=== PATIENT | male | born 1980 | race Caucasian/White ===

== ENCOUNTER 2020-12-21 21:31 | Observation (INO) | payer OTHER ==
[2020-12-21] MEDS ORDERED: fentaNYL 50 MCG/ML SDV IVPUSH ONE ×2 (21:53→23:27)
[2020-12-21] MEDS ORDERED: Ondansetron 4 MG/2 ML SDV IVPUSH ONE (21:53)
[2020-12-21] MEDS ORDERED: Sodium Chloride 0.9% 1,000 ML IV ONE (21:53)
--- NOTE | 2020-12-21 22:25 | EDM.PDOC ---
ED HPI GENERAL MEDICAL PROBLEM - General Chief Complaint: Abdominal Pain Stated Complaint: ABDOMINAL PAIN Time Seen by Provider: 12/21/20 21:50 - History of Present Illness INITIAL COMMENTS - FREE TEXT/NARRATIVE: HISTORY AND PHYSICAL: History of present illness: This is a healthy 40-year-old gentleman with no significant past medical history who presents ER today complaining of lower abdominal pain. Patient is a transfer from [facility] for evaluation of pain to his right lower quadrant and concerns for appendicitis. Patient reports that his last p.o. intake with early this morning. Patient has complained of anorexia with nausea and emesis. Patient denies any fevers, shakes, chills. Patient does complain of pain with ambulation and coughing to his abdomen. Patient denies any dysuria, frequency, urgency, chest pain, shortness of breath. Review of systems: As per history of present illness and below otherwise all systems reviewed and negative. Past medical history: As per history of present illness and as reviewed below otherwise noncontributory. Surgical history: As per history of present illness and as reviewed below otherwise noncontributory. Social history: No reported history of drug or alcohol abuse. Family history: As per history of present illness and as reviewed below otherwise noncontributory. Physical exam: Constitutional: Patient is oriented to person, place, and time. Appears well- developed and well-nourished. No distress. HEENT: Moist mucous membranes Head: Normocephalic and atraumatic Eyes: Right eye exhibits no discharge. Left eye exhibits no discharge. No scleral icterus Neck: Normal range of motion. No tracheal deviation present. Cardiovascular: Normal rate and regular rhythm. Pulmonary: Effort normal, no respiratory distress. Abd: Soft, nondistended, no rebound/guarding, no psoas or obturator signs, no tenderness at Mcberney's point, no Hartman's sign. Pt does not present with an exam that would be consistent with an acute surgical abdomen at this time, tenderness palpation diffusely greatest in the right lower quadrant. Musculoskeletal: Normal range of motion Neurologic: Alert and oriented to person, place and time. Skin: [place], warm and dry. Psychiatric: Normal mood and affect. Behavior is normal. Judgment and thought content normal. Nursing note and vital signs have been reviewed This patient was seen and evaluated during the 2019 SARS-CoV-2 novel coronavirus pandemic period. Community viral transmission is ongoing at time of this encounter and the emergency department is operating under pandemic response proc edures. Diagnostics: CT scan consistent with acute appendicitis Chest Xray: Normal cardiac silhouette No infiltrates or effusions identified. No PTX No evidence of acute bony fracture. As interpreted by ER MD: [employer]: Fentanyl, Zofran, NSS Assessment and plan: This is a 40-year-old gentleman who presents ER today as a transfer for evaluation of possible appendicitis. Patient does have tenderness palpation diffusely throughout his abdomen but is greatest in the right lower quadrant region. Patient's labs from [facility] are significant for slightly elevated WBC count of 13.5. Patient's BUN and creatinine are both normal. We will obtain a CT scan of the abdomen pelvis with contrast to evaluate for kidney stone as well as appendicitis. CT scan of the abdomen pelvis reveals findings consistent with appendicitis without abscess or free air/perforation. Case has been discussed with Dr. Lanza who agrees with plan for admission. I discussed the results with the patient. Coronavirus test has been ordered. Definitive disposition and diagnosis as appropriate pending reevaluation and review of above. general abdomen Pain Score (Numeric/FACES): 8 - Related Data Allergies Allergy/AdvReac Type Severity Reaction Status Date / Time hydrocodone Allergy Nausea and Verified 12/21/20 21:36 Vomiting Home Meds: Home Meds Metoprolol Succinate 50 mg PO DAILY 12/21/20 [History] lisinopriL [Lisinopril] 25 mg PO DAILY 12/21/20 [History] Past Medical History Cardiovascular History: Reports: Afib, Hypertension Other Cardiovascular History: hx of afib Social & Family History - Family History Family Medical History: No Pertinent Family History - Caffeine Use Caffeine Use: Reports: None - Recreational Drug Use Recreational Drug Use: No ED ROS GENERAL - Review of Systems Review Of Systems: See Below ED EXAM, GENERAL - Physical Exam Exam: See Below #1 Interpretation EKG Interpretation Comments: EKG: As interpreted by ER physician: Gretta: Nonspecific ST-T wave abnormalities Normal axis No evidence of ST elevation WA Normal sinus rhythm heart rate of 58 Course - Vital Signs Last Recorded V/S: Last Vital Signs Temp 98.0 F 12/21/20 21:37 Pulse 72 12/21/20 22:51 Resp 18 12/21/20 22:51 BP 151/93 H 12/21/20 22:51 Pulse Ox 98 12/21/20 22:51 - Orders/Labs/Meds Orders: Active Orders 24 hr Category Date Time Status Patient Status [ADT] Routine ADT 12/21/20 23:01 Active EKG Documentation Completion [RC] AM Care 12/21/20 23:02 Active Chest 1V Frontal [CR] Stat Exams 12/21/20 23:03 Taken CORONAVIRUS COVID-19 SATNAM [MOLEC] Stat Lab 12/21/20 22:47 Received fentaNYL Med 12/21/20 23:27 Once 50 mcg IVPUSH ONETIME ONE Medication Orders Fentanyl (Fentanyl) 50 mcg IVPUSH ONETIME ONE Stop: 12/21/20 23:28 Meds: Medications Generic Name Dose Route Start Last Admin Trade Name Freq PRN Reason Stop Dose Admin Fentanyl 50 mcg 12/21/20 23:27 Fentanyl IVPUSH 12/21/20 23:28 ONETIME ONE Discontinued Medications Generic Name Dose Route Start Last Admin Trade Name Freq PRN Reason Stop Dose Admin Fentanyl 50 mcg 12/21/20 21:53 12/21/20 22:13 Fentanyl IVPUSH 12/21/20 21:54 50 mcg ONETIME ONE Administration Sodium Chloride 1,000 mls @ 999 mls/hr 12/21/20 21:53 12/21/20 22:12 Normal Saline IV 12/21/20 22:53 999 mls/hr .Bolus ONE Administration Ondansetron HCl 4 mg 12/21/20 21:53 12/21/20 22:13 Zofran IVPUSH 12/21/20 21:54 4 mg ONETIME ONE Administration Departure - Departure Time of Disposition: 23:02 Disposition: Refer to Observation Condition: Good Clinical Impression: Appendicitis Qualifiers: Appendicitis type: acute appendicitis Acute appendicitis type: unspecified acute appendicitis type Qualified Code(s): K35.80 - Unspecified acute appendicitis - Discharge Information Referrals: Linden Foster MD [Primary Care Provider] - Forms: ED Department Discharge Sepsis Event Note (ED) - Evaluation Sepsis Screening Result: No Definite Risk - Focused Exam Vital Signs: Vital Signs Temp Pulse Resp BP Pulse Ox 12/21/20 22:51 72 18 151/93 H 98 12/21/20 21:37 98.0 F 59 L 18 156/88 H 96 - My Orders Last 24 Hours: My Active Orders 12/21/20 22:47 CORONAVIRUS COVID-19 SATNAM [MOLEC] Stat 12/21/20 23:01 Patient Status [ADT] Routine 12/21/20 23:02 EKG Documentation Completion [RC] AM 12/21/20 23:03 Chest 1V Frontal [CR] Stat 12/21/20 23:27 fentaNYL 50 mcg IVPUSH ONETIME ONE - Assessment/Plan Last 24 Hours: My Active Orders 12/21/20 22:47 CORONAVIRUS COVID-19 SATNAM [MOLEC] Stat 12/21/20 23:01 Patient Status [ADT] Routine 12/21/20 23:02 EKG Documentation Completion [RC] AM 12/21/20 23:03 Chest 1V Frontal [CR] Stat 12/21/20 23:27 fentaNYL 50 mcg IVPUSH ONETIME ONE
--- NOTE | 2020-12-21 22:46 | CT ---
INDICATION: Lower abdominal pain TECHNIQUE: CT abdomen and pelvis without contrast. COMPARISON: None FINDINGS: Lower chest: 2 mm subpleural pulmonary nodule left lower lobe image 18 series 202. In Liver: Unremarkable. Spleen: Unremarkable. Pancreas: Unremarkable. Gallbladder and bile ducts: Unremarkable. Adrenal glands: Unremarkable. Kidneys: Unremarkable. No kidney or ureteral stones and no hydronephrosis. GI tract: The appendix measures 1.2 cm in diameter. There at mid fecaliths within the appendix. Mild periappendiceal fat stranding. No extraluminal air or large fluid collection. Minimal colonic diverticulosis. Vascular structures: Unremarkable. Lymph nodes: Unremarkable. Miscellaneous: Small fat containing umbilical hernia. Small fat containing bilateral inguinal hernias. No free air or significant free fluid. Pelvic Organs: Unremarkable. Bones: Unremarkable for age. IMPRESSION: Acute appendicitis. No extraluminal air. No evidence for significant fluid collection. Left lower lobe pulmonary nodule. Recommend follow-up per Fleischner society guidelines, as listed below. Minimal colonic diverticulosis. Findings discussed with Dr. Glynn at 10:45 p.m. on December 21, 2020. FLEISCHNER SOCIETY GUIDELINES - SOLID NODULES: SINGLE LOW RISK - nodule less than 6 mm: No routine follow-up. - nodule 6-8 mm: CT at 6-12 months, then consider CT at 18-24 months. - nodule greater than 8 mm: Consider CT at 3 months, PET/CT or tissue sampling. SINGLE HIGH RISK - nodule less than 6 mm: Optional CT at 12 months. - nodule 6-8 mm: CT at 6-12 months, then CT at 18-24 months. - nodule greater than 8 mm: Consider CT at 3 months, PET/CT or tissue sampling. Please note that all CT scans at this facility use dose modulation, iterative reconstruction, and/or weight-based dosing when appropriate to reduce radiation dose to as low as reasonably achievable. Dictated by Selena Clay MD @ Dec 21 2020 10:36PM Signed by Dr. Selena Clay @ Dec 21 2020 10:45PM
--- NOTE | 2020-12-21 23:34 | CR ---
Acute appendicitis indication: Technique: Chest 1 view Comparison: None Findings/Impression: Cardiovascular and mediastinum: Heart size and vasculature are normal in caliber and appearance. Mediastinum is within normal limits. Lungs and pleural space: Minimal linear atelectasis or scarring at the left lung base. No sign of pleural effusion. No pneumothorax. Bones and soft tissues: No significant findings. Dictated by Selena Clay MD @ Dec 21 2020 11:31PM Signed by Dr. Selena Clay @ Dec 21 2020 11:32PM
[2020-12-22] MEDS ORDERED: Acetaminophen 325 MG Tab PO PRN (00:06)
[2020-12-22] MEDS ORDERED: Ondansetron 4 MG/2 ML SDV IVPUSH PRN (00:13)
[2020-12-22] MEDS ORDERED: Lactated Ringers 1,000 ML IV SCH (00:15)
[2020-12-22] MEDS: HYDROmorphone 1 MG/ML Syringe IVPUSH PRN ×3 (01:01→08:12)
[2020-12-22] MEDS: Piperacillin/Tazobactam 3.375 GM in Sodium Chloride 0.9% 50 ML IV SCH ×2 (01:07→06:54)
--- NOTE | 2020-12-22 07:58 | PCM.PREANE ---
Preanesthetic Assessment - Procedure Proposed Procedure: laparoscopic appendectomy - Anesthesia/Transfusion/Family Hx Anesthesia History: Prior Anesthesia Without Reaction Family History of Anesthesia Reaction: No Transfusion History: No Prior Transfusion(s) Intubation History: Unknown - Review of Systems General: No Symptoms Pulmonary: No Symptoms Cardiovascular: Orthopnea Gastrointestinal: Abdominal Pain, Nausea, Vomiting Neurological: No Symptoms Other: Reports: None - Physical Assessment NPO Status Date: 12/21/20 NPO Status Time: 17:00 Vital Signs: Last Vital Signs Temp 36.2 C 12/22/20 04:19 Pulse 69 12/22/20 04:19 Resp 18 12/22/20 04:19 BP 147/85 H 12/22/20 04:19 Pulse Ox 94 L 12/22/20 04:19 Height: 6 ft 0.05 in Weight: 106.9 kg ASA Class: 2 Mental Status: Alert & Oriented x3 Airway Class: Mallampati = 1 Dentition: Reports: Normal Dentition Thyro-Mental Finger Breadths: 3 Mouth Opening Finger Breadths: 3 ROM/Head Extension: Full Lungs: Clear to Auscultation, Normal Respiratory Effort Cardiovascular: Regular Rate, Regular Rhythm - Lab Values: Laboratory Last Values SARS-CoV-2 RNA (SATNAM) NEGATIVE (NEGATIVE) 12/21/20 22:47 - Allergies Allergies/Adverse Reactions: Allergies Allergy/AdvReac Type Severity Reaction Status Date / Time hydrocodone Allergy Nausea and Verified 12/22/20 01:18 Vomiting - Blood Blood Available: No - Anesthesia Plan Pre-Op Medication Ordered: None - Acknowledgements Anesthesia Type Planned: General Anesthesia Pt an Appropriate Candidate for the Planned Anesthesia: Yes Alternatives and Risks of Anesthesia Discussed w Pt/Guardian: Yes Pt/Guardian Understands and Agrees with Anesthesia Plan: Yes PreAnesthesia Questionnaire Cardiovascular History: Reports: Afib, Hypertension Other Cardiovascular History: hx of afib - SUBSTANCE USE Tobacco Use Status *Q: Never Tobacco User Tobacco Use Within Last Twelve Months: Smokeless Tobacco Recreational Drug Use History: No - HOME MEDS Home Medications: Home Meds Metoprolol Succinate 50 mg PO DAILY 12/21/20 [History] lisinopriL [Lisinopril] 25 mg PO DAILY 12/21/20 [History] - CURRENT (IN HOUSE) MEDS Current Meds: Current Medications Acetaminophen (Tylenol) 500 mg PO Q6H PRN PRN Reason: Fever Hydromorphone HCl (Dilaudid) 0.5 mg IVPUSH Q1H PRN PRN Reason: Pain Last Admin: 12/22/20 04:15 Dose: 0.5 mg Documented by: Lactated Ringer's (Ringers, Lactated) 1,000 mls @ 125 mls/hr IV ASDIRECTED [facility] Last Admin: 12/22/20 01:58 Dose: 125 mls/hr Documented by: Piperacillin Sod/Tazobactam (Sod 3.375 gm/ Sodium Chloride) 50 mls @ 100 mls/hr IV Q6H [facility] Last Admin: 12/22/20 06:54 Dose: 100 mls/hr Documented by: Ondansetron HCl (Zofran) 4 mg IVPUSH Q6H PRN PRN Reason: Nausea/Vomiting Discontinued Medications Fentanyl (Fentanyl) 50 mcg IVPUSH ONETIME ONE Stop: 12/21/20 21:54 Last Admin: 12/21/20 22:13 Dose: 50 mcg Documented by: Fentanyl (Fentanyl) 50 mcg IVPUSH ONETIME ONE Stop: 12/21/20 23:28 Last Admin: 12/21/20 23:39 Dose: 50 mcg Documented by: Sodium Chloride (Normal Saline) 1,000 mls @ 999 mls/hr IV .Bolus ONE Stop: 12/21/20 22:53 Last Admin: 12/21/20 22:12 Dose: 999 mls/hr Documented by: Ondansetron HCl (Zofran) 4 mg IVPUSH ONETIME ONE Stop: 12/21/20 21:54 Last Admin: 12/21/20 22:13 Dose: 4 mg Documented by:
[2020-12-22] MEDS ORDERED: fentaNYL 250 MCG/5 ML SDV ONE (08:12)
[2020-12-22] MEDS ORDERED: Midazolam 1 MG/ML 2 ML SDV ONE (08:12)
[2020-12-22] MEDS ORDERED: Propofol 200 MG/20 ML SDV ONE ×3 (08:12→11:30)
[2020-12-22] MEDS ORDERED: Rocuronium Bromide 50 MG/5 ML Syringe ONE (08:12)
[2020-12-22] MEDS ORDERED: Ondansetron 4 MG/2 ML SDV ONE (08:12)
[2020-12-22] MEDS ORDERED: Dexamethasone 4 MG/ML 5 ML MDV ONE (08:12)
[2020-12-22] MEDS ORDERED: Lidocaine 2% 5 ML SDV ONE (08:12)
--- NOTE | 2020-12-22 08:12 | PCM.HP.2 ---
H&P History of Present Illness - General Date of Service: 12/22/20 Admit Problem/Dx: Admission Diagnosis/Problem Admission Diagnosis/Problem Acute appendicitis Source of Information: Patient History Limitations: Reports: No Limitations - History of Present Illness Initial Comments - Free Text/Narative: Patient is a 40 year old male who presents with acute appendicitis. He developed pain yesterday afternoon. The pain progressed throughout the day and centered on the right lower quadrant. He presented to an OSH. Work up revealed a leukocytosis. He was transferred here for a CT abdomen pelvis. CT abdomen pelvis in the ER showed acute appendicitis. He denies any nausea other than when he has received pain medications. general abdomen Pain Score (Numeric/FACES): 10 - Related Data Allergies/Adverse Reactions: Allergies Allergy/AdvReac Type Severity Reaction Status Date / Time hydrocodone Allergy Nausea and Verified 12/22/20 01:18 Vomiting Home Medications: Home Meds Metoprolol Succinate 50 mg PO DAILY 12/21/20 [History] lisinopriL [Lisinopril] 25 mg PO DAILY 12/21/20 [History] Past Medical History Cardiovascular History: Reports: Afib, Hypertension Other Cardiovascular History: hx of afib Social & Family History - Family History Family Medical History: No Pertinent Family History - Tobacco Use Tobacco Use Status *Q: Never Tobacco User - Caffeine Use Caffeine Use: Reports: None - Recreational Drug Use Recreational Drug Use: No H&P Review of Systems - Review of Systems: Review Of Systems: Comprehensive ROS is negative, except as noted in HPI. Exam - Exam Exam: See Below - Vital Signs Vital Signs: Last Vital Signs Temp 36.4 C 12/22/20 08:00 Pulse 75 12/22/20 08:00 Resp 14 12/22/20 08:00 BP 136/77 12/22/20 08:00 Pulse Ox 94 L 12/22/20 08:00 Weight: 106.9 kg - Exam Quality Assessment: Supplemental Oxygen General: Alert, Oriented, Mild Distress HEENT: Conjunctiva Clear, Mucosa Moist & Sharpes, Posterior Pharynx Clear Neck: Supple Lungs: Clear to Auscultation, Normal Respiratory Effort Cardiovascular: Regular Rate, Regular Rhythm GI/Abdominal Exam: Soft, No Distention, No Mass, Tender (RLQ). No: Guarding, Rigid, Rebound Extremities: Normal Inspection - Patient Data Lab Results Last 24 hrs: Laboratory Results - last 24 hr 12/21/20 Range/Units 22:47 SARS-CoV-2 RNA (SATNAM) NEGATIVE (NEGATIVE) Sepsis Event Note - Evaluation Sepsis Screening Result: No Definite Risk - Focused Exam Vital Signs: Vital Signs Temp Pulse Resp BP Pulse Ox 12/22/20 08:00 36.4 C 75 14 136/77 94 L 12/22/20 04:19 36.2 C 69 18 147/85 H 94 L 12/22/20 01:15 36.6 C 65 19 151/92 H 95 12/22/20 00:11 59 L 19 158/95 H 94 L 12/21/20 22:51 72 18 151/93 H 98 12/21/20 21:37 36.7 C 59 L 18 156/88 H 96 - Problem List (1) Appendicitis SNOMED Code(s): 66856813 ICD Code: K37 - UNSPECIFIED APPENDICITIS Status: Acute Current Visit: Yes Qualifiers: Appendicitis type: acute appendicitis Acute appendicitis type: unspecified acute appendicitis type Qualified Code(s): K35.80 - Unspecified acute appendicitis Problem List Initiated/Reviewed/Updated: Yes Orders Last 24hrs: Active Orders 24 hr Category Date Time Status Admission Status [Patient Status] [ADT] Routine ADT 12/22/20 00:04 Active NPO Now [Nothing per Oral Now Diet] [DIET] Diet 12/22/20 Breakfast Active Acetaminophen [TylenoL] Med 12/22/20 00:06 Active 500 mg PO Q6H PRN HYDROmorphone [Dilaudid] Med 12/22/20 00:10 Active 0.5 mg IVPUSH Q1H PRN Lactated Ringers [Ringers, Lactated] 1,000 ml Med 12/22/20 00:15 Active IV ASDIRECTED Ondansetron [Zofran] Med 12/22/20 00:13 Active 4 mg IVPUSH Q6H PRN Piperacillin/Tazobactam [Piperacil-Tazobact] 3.375 gm Med 12/22/20 01:00 Active Sodium Chloride 0.9% [Normal Saline] 50 ml IV Q6H Code Status [Resuscitation Status] Routine Resus Stat 12/22/20 00:05 Ordered Medication Orders Acetaminophen (Tylenol) 500 mg PO Q6H PRN PRN Reason: Fever Hydromorphone HCl (Dilaudid) 0.5 mg IVPUSH Q1H PRN PRN Reason: Pain Last Admin: 12/22/20 04:15 Dose: 0.5 mg Documented by: Admin: 12/22/20 01:01 Dose: 0.5 mg Documented by: ASHWIN Lactated Ringer's (Ringers, Lactated) 1,000 mls @ 125 mls/hr IV [facility]IRECTED [facility] Last Admin: 12/22/20 01:58 Dose: 125 mls/hr Documented by: ASHWIN Piperacillin Sod/Tazobactam (Sod 3.375 gm/ Sodium Chloride) 50 mls @ 100 mls/hr IV Q6H [facility] Last Admin: 12/22/20 06:54 Dose: 100 mls/hr Documented by: ALBIMAKeenan Infusion: 12/22/20 01:37 Dose: 100 mls/hr Documented by: Admin: 12/22/20 01:07 Dose: 100 mls/hr Documented by: ASHWIN Ondansetron HCl (Zofran) 4 mg IVPUSH Q6H PRN PRN Reason: Nausea/Vomiting Assessment/Plan Comment:: The patient and I discussed the pathophysiology of appendicitis. The treatment is appendectomy. I will attempt this laparoscopically but covert to open should I be unable to perform it safely laparoscopically. We discussed the expected perioperative course for each procedure as well as for ruptured vs non-ruptured appendicitis. We discussed the risks including bleeding infection or damage to surrounding structures. He verbalized understanding and wishes to proceed.
[2020-12-22] MEDS ORDERED: Bupivacaine 0.5% 30 ML SDV ONE (08:14)
[2020-12-22] MEDS ORDERED: Succinylcholine/Sod PF 100 MG/5 ML SYRINGE IV ONE (08:15)
[2020-12-22] MEDS ORDERED: Ketamine 500 mg/10 ML MDV ONE (08:20)
[2020-12-22] MEDS ORDERED: Glycopyrrolate 0.2 MG/ML SDV ONE ×3 (09:14→11:20)
[2020-12-22] MEDS ORDERED: Ketorolac 30 MG/ML SDV ONE (09:14)
[2020-12-22] MEDS ORDERED: fentaNYL 100 MCG/2 ML SDV IVPUSH PRN (09:23)
[2020-12-22] MEDS ORDERED: Acetaminophen 1,000 MG in Premix Bag 1 BAG IV ONE (09:24)
--- NOTE | 2020-12-22 10:12 | PCM.OPNOTE ---
- General Post-Op/Procedure Note Date of Surgery/Procedure: 12/22/20 Operative Procedure(s): Laparoscopic appendectomy Findings: Acute appendicitis with no evidence of perforation Pre Op Diagnosis: acute appendicitis Post-Op Diagnosis: same Anesthesia Technique: General ET Tube Primary Surgeon: Melissa Kern Fluid Replacement, Intraop: 1,000 Output, Urine Amount: 1,400 EBL in mLs: 5 Condition: Stable Free Text/Narrative:: Intake & Output 12/21/20 12/22/20 12/22/20 22:59 06:59 14:59 Intake Total 303 Output Total 650 Balance -347
[2020-12-22] MEDS ORDERED: oxyCODONE 5 MG Tab PO PRN (10:19)
[2020-12-22] MEDS ORDERED: diphenhydrAMINE 50 MG/ML SDV IVPUSH PRN (10:20)
--- NOTE | 2020-12-22 10:33 | PCM.POSTAN ---
POST ANESTHESIA ASSESSMENT - MENTAL STATUS Mental Status: Alert, Oriented - VITAL SIGNS Vital Signs: Last Vital Signs Temp 37.0 C 12/22/20 09:53 Pulse 62 12/22/20 10:24 Resp 22 H 12/22/20 10:24 BP 128/74 12/22/20 10:24 Pulse Ox 97 12/22/20 10:24 - RESPIRATORY Respiratory Status: Respiratory Rate WNL, Airway Patent, O2 Saturation Stable - CARDIOVASCULAR CV Status: Pulse Rate WNL, Blood Pressure Stable - GASTROINTESTINAL GI Status: No Symptoms - PAIN Pain Score: 5 Free Text/Narrative:: pt states tolerable and is trying to stay away from narcs, IV tylenol given - POST OP HYDRATION Hydration Status: Adequate & Stable
--- NOTE | 2020-12-22 10:57 | OR ---
SURGEON: MELISSA KERN MD DATE OF PROCEDURE: 12/21/2020 PREOPERATIVE DIAGNOSIS: Acute appendicitis. POSTOPERATIVE DIAGNOSIS: Acute appendicitis. PROCEDURE PERFORMED: Laparoscopic appendectomy. PRIMARY SURGEON: Melissa Kern MD ANESTHESIA: General endotracheal anesthesia. FLUIDS: 1000 mL crystalloid. ESTIMATED BLOOD LOSS: 5 mL. URINE OUTPUT: 1400 mL. FINDINGS: Grossly inflamed and enlarged appendix. No evidence of perforation. COMPLICATIONS: None. INDICATIONS: The patient is a 40-year-old male who presented to the emergency room with acute appendicitis. I explained to the patient the need for an appendectomy. I would attempt this laparoscopically and convert to open should I be unable to perform it safely. We discussed the expected perioperative course as well as the risks including bleeding, infection, or damage to surrounding structures. He verbalized understanding and wishes to proceed. PROCEDURE IN DETAIL: The patient was brought into the OR and placed on the OR table in supine position. A time-out was completed verifying the patient's name, age, date of , allergies, and procedure to be performed. General endotracheal anesthesia was induced. The left arm was tucked to the patient's side, and a Espinal catheter placed. The abdomen was prepped and draped in usual standard fashion. I anesthetized an area 2 fingerbreadths below the left subcostal margin in the midclavicular line with 0.5% Marcaine plain. An 11 blade was used to make an incision in this area. A 5 mm optical trocar was used to gain entry into the left upper quadrant under direct visualization. All layers of the abdominal wall were visualized upon entry. The abdomen was insufflated. A 5 mm 30-degree scope was inserted. I inspected the area underneath my initial trocar placement. No damage to surrounding structures was noted. A 5 mm trocar was then placed just left and lateral to the umbilicus. A 12 mm trocar was placed under direct visualization along the lower midline. The patient was placed into Trendelenburg position and airplaned slightly to the left. I turned my attention to the right lower quadrant. I identified the cecum. I identified the base of the appendix. The tip of the appendix was lying just inferior to this. It was grasped and elevated. I could clearly see that the appendix was inflamed and enlarged, but there was no evidence of perforation or any surrounding purulence. I used a Harmonic scalpel device to take down the appendiceal mesentery from distal to proximal, taking care to avoid damage to surrounding structures. Once I had reached the base of the appendix, I made sure to clear away all attachments to the appendix itself. An endoscopic stapling device was brought into the field. I stapled and transected across the base of the appendix. The appendix was placed in an Endo Catch bag and removed through the inferior midline port site. The 12 mm trocar was replaced, and I inspected my operative field. It was hemostatic. I irrigated the area with a small amount of normal saline, which was suctioned out. The 12 mm trocar was then removed, and I closed the fascia at this site with an interrupted 0 Vicryl using a Bobby-Praneeth device. The 5 mm trocars were then removed under direct visualization, and the abdomen desufflated. I closed the subcutaneous fat at the 12 mm port site with interrupted 3-0 Vicryl sutures. The skin was closed with running 4-0 Monocryl stitch. I closed the 5 mm trocar sites with interrupted 4-0 Monocryl sutures. Steri-Strips and sterile dressings were applied. The patient tolerated the procedure well, was extubated, and taken to PACU in stable condition. All counts were complete and correct at the end of the case. SÁNCHEZ WATT /[id number]
[2020-12-22] MEDS ORDERED: ePHEDrine 50 MG/ML SDV ONE (11:08)
[2020-12-22] MEDS ORDERED: HYDROmorphone 2 MG/ML Syringe ONE (11:18)
--- NOTE | 2020-12-22 15:16 | PCM48HPAN ---
Post Anesthesia Note - EVALUATION WITHIN 48HRS OF ANESTHETIC Vital Signs in Normal Range: Yes Patient Participated in Evaluation: Yes Respiratory Function Stable: Yes Airway Patent: Yes Cardiovascular Function Stable: Yes Hydration Status Stable: Yes Pain Control Satisfactory: Yes Nausea and Vomiting Control Satisfactory: Yes Mental Status Recovered: Yes Vital Signs: Last Vital Signs Temp 36.1 C 12/22/20 14:30 Pulse 90 12/22/20 14:30 Resp 16 12/22/20 14:30 BP 114/67 12/22/20 14:30 Pulse Ox 93 L 12/22/20 14:30
[2020-12-22] MEDS ORDERED: Ketorolac 10 MG Tab PO SCH (16:00)
[2020-12-22] MEDS ORDERED: Acetaminophen 500 MG Tab PO SCH (16:00)
--- NOTE | 2020-12-23 09:15 | PCM.SURGPN ---
- General Info Date of Service: 12/22/20 Date of Surgery/Procedure: 12/22/20 POD#: 0 Functional Status: Reports: Pain Controlled, Tolerating Diet, Ambulating, Urinating - Review of Systems General: Reports: No Symptoms HEENT: Reports: No Symptoms Pulmonary: Reports: No Symptoms Cardiovascular: Reports: No Symptoms Gastrointestinal: Reports: No Symptoms Genitourinary: Reports: No Symptoms Musculoskeletal: Reports: No Symptoms Skin: Reports: No Symptoms - Patient Data Vitals - Most Recent: Last Vital Signs Temp 36.1 C 12/22/20 14:30 Pulse 90 12/22/20 14:30 Resp 16 12/22/20 14:30 BP 114/67 12/22/20 14:30 Pulse Ox 93 L 12/22/20 14:30 Weight - Most Recent: 106.9 kg I&O - Last 24 Hours: Intake & Output 12/22/20 12/23/20 12/23/20 22:59 06:59 14:59 Intake Total 800 Output Total 1600 Balance -800 Med Orders - Current: Current Medications Discontinued Medications Acetaminophen (Tylenol) 500 mg PO Q6H PRN PRN Reason: Fever Acetaminophen (Tylenol Extra Strength) 500 mg PO Q6H RANDALL Last Admin: 12/22/20 15:15 Dose: 500 mg Documented by: Bupivacaine HCl (Marcaine 0.5%) Confirm Administered Dose 30 ml .ROUTE .STK-MED ONE Stop: 12/22/20 08:15 Dexamethasone (Dexamethasone) Confirm Administered Dose 40 mg .ROUTE .STK-MED ONE Stop: 12/22/20 08:13 Diphenhydramine HCl (Benadryl) 50 mg IVPUSH Q4H PRN PRN Reason: Itching Ephedrine Sulfate (Ephedrine Sulfate) Confirm Administered Dose 50 mg .ROUTE .STK-MED ONE Stop: 12/22/20 11:09 Fentanyl (Fentanyl) 50 mcg IVPUSH ONETIME ONE Stop: 12/21/20 21:54 Last Admin: 12/21/20 22:13 Dose: 50 mcg Documented by: Fentanyl (Fentanyl) 50 mcg IVPUSH ONETIME ONE Stop: 12/21/20 23:28 Last Admin: 12/21/20 23:39 Dose: 50 mcg Documented by: Fentanyl (Sublimaze) Confirm Administered Dose 250 mcg .ROUTE .STK-MED ONE Stop: 12/22/20 08:13 Fentanyl (Sublimaze) 50 mcg IVPUSH Q5M PRN PRN Reason: Pain (severe 7-10) Stop: 12/23/20 09:23 Glycopyrrolate (Robinul) Confirm Administered Dose 0.4 mg .ROUTE .STK-MED ONE Stop: 12/22/20 09:15 Glycopyrrolate (Robinul) Confirm Administered Dose 0.2 mg .ROUTE .STK-MED ONE Stop: 12/22/20 09:39 Glycopyrrolate (Robinul) Confirm Administered Dose 0.4 mg .ROUTE .STK-MED ONE Stop: 12/22/20 11:21 Hydromorphone HCl (Dilaudid) 0.5 mg IVPUSH Q1H PRN PRN Reason: Pain Last Admin: 12/22/20 08:12 Dose: 0.5 mg Documented by: Hydromorphone HCl (Dilaudid) Confirm Administered Dose 2 mg .ROUTE .STK-MED ONE Stop: 12/22/20 11:19 Sodium Chloride (Normal Saline) 1,000 mls @ 999 mls/hr IV .Bolus ONE Stop: 12/21/20 22:53 Last Admin: 12/21/20 22:12 Dose: 999 mls/hr Documented by: Lactated Ringer's (Ringers, Lactated) 1,000 mls @ 125 mls/hr IV ASDIRECTED [facility] Last Admin: 12/22/20 01:58 Dose: 125 mls/hr Documented by: Piperacillin Sod/Tazobactam (Sod 3.375 gm/ Sodium Chloride) 50 mls @ 100 mls/hr IV Q6H [facility] Last Admin: 12/22/20 06:54 Dose: 100 mls/hr Documented by: Acetaminophen 1,000 mg/ Premix 100 mls @ 400 mls/hr IV NOW ONE Stop: 12/22/20 09:38 Last Admin: 12/22/20 10:22 Dose: 400 mls/hr Documented by: Ketamine HCl (Ketalar) Confirm Administered Dose 500 mg .ROUTE .STK-MED ONE Stop: 12/22/20 08:21 Ketorolac Tromethamine (Toradol) Confirm Administered Dose 30 mg .ROUTE .STK-MED ONE Stop: 12/22/20 09:15 Ketorolac Tromethamine (Toradol) 10 mg PO Q6H RANDALL Stop: 12/27/20 16:01 Last Admin: 12/22/20 15:15 Dose: 10 mg Documented by: Lidocaine (Xylocaine-Mpf 2%) Confirm Administered Dose 5 ml .ROUTE .STK-MED ONE Stop: 12/22/20 08:13 Midazolam HCl (Versed 1 Mg/Ml) Confirm Administered Dose 2 mg .ROUTE .STK-MED ONE Stop: 12/22/20 08:13 Ondansetron HCl (Zofran) 4 mg IVPUSH ONETIME ONE Stop: 12/21/20 21:54 Last Admin: 12/21/20 22:13 Dose: 4 mg Documented by: Ondansetron HCl (Zofran) 4 mg IVPUSH Q6H PRN PRN Reason: Nausea/Vomiting Last Admin: 12/22/20 08:12 Dose: 4 mg Documented by: Ondansetron HCl (Zofran) Confirm Administered Dose 4 mg .ROUTE .STK-MED ONE Stop: 12/22/20 08:13 Oxycodone HCl (Oxycodone) 10 mg PO Q4H PRN PRN Reason: Abdominal Pain Propofol (Diprivan 20 Ml) Confirm Administered Dose 400 mg .ROUTE .STK-MED ONE Stop: 12/22/20 08:13 Propofol (Diprivan 20 Ml) Confirm Administered Dose 200 mg .ROUTE .STK-MED ONE Stop: 12/22/20 09:17 Propofol (Diprivan 20 Ml) Confirm Administered Dose 200 mg .ROUTE .STK-MED ONE Stop: 12/22/20 11:31 Rocuronium [place] (Rocuronium [place]view) Confirm Administered Dose 50 mg .ROUTE .STK-MED ONE Stop: 12/22/20 08:13 - Exam Wound/Incisions: Healing Well, Dressing Dry and Intact General: Alert, Oriented HEENT: Pupils Equal, Pupils Reactive Lungs: Normal Respiratory Effort Cardiovascular: Regular Rate GI/Abdominal Exam: Soft, Non-Tender, No Distention, No Mass Extremities: Normal Inspection Skin: Warm, Dry, Intact Neurological: No New Focal Deficit Psy/Mental Status: Alert, Normal Affect Sepsis Event Note - Evaluation Sepsis Screening Result: No Definite Risk - Problem List & Annotations (1) Appendicitis SNOMED Code(s): 27435011 Code(s): K37 - UNSPECIFIED APPENDICITIS Status: Acute Qualifiers: Appendicitis type: acute appendicitis Acute appendicitis type: unspecified acute appendicitis type Qualified Code(s): K35.80 - Unspecified acute appendicitis - Problem List Review Problem List Initiated/Reviewed/Updated: Yes - Plan Plan (Free Text/Narrative):: Patient doing well postoperatively. Tolerating a regular diet. Pain well controlled. UOP adequate. Patient and I went over his discharge instructions. Will see me in clinic in 2 weeks. Ok to discharge home.
== END 2020-12-22 17:02 | disposition home or self-care (01) ==
LOC: MW.ED 21:31 → MW.MS 23:56
PROVIDERS: ADMIT Surgery; ATTEND Surgery
DX: K35.80 Unspecified acute appendicitis (principal); R91.1 Solitary pulmonary nodule; I10 Essential (primary) hypertension; I48.91 Unspecified atrial fibrillation; Z01.812 Encounter for preprocedural laboratory examination; Z20.822 Contact with and (suspected) exposure to COVID-19; Z88.6 Allergy status to analgesic agent; Z79.899 Other long term (current) drug therapy
CPT/HCPCS: 44970; 71045; 74176; 87635; 88304; 93005; 96374; 96375; 96376; 99285; A9270; J0131; J0330; J1100; J1170; J1885; J2250; J2405; J2543; J2704; J3010; J3490; J7030; J7120; 00840; U0002